=== PATIENT | female | born 1965 | race Caucasian/White ===

== ENCOUNTER 2020-08-16 17:54 | Inpatient (IN) ==
[2020-08-16 18:31] LABS: Eosinophils % 0.3 %; Lymphocytes % 41.5 %; Mean Corpuscular HGB Conc 33.1 g/dL (31.6-35.5); Mean Corpuscular Hemoglobin 31.1 pg (28.0-33.3); Mean Corpuscular Volume 94.1 fL (83.0-100.0); Mean Platelet Volume 10.1 fL (9.4-12.4); Monocytes # 0.2 K/mcL (0.0-1.3); Monocytes % 4.6 %; Nucleated Red Blood Cells 0.5 /100 WBC (0); Platelet Count 119 K/mcL (140-400); Red Blood Count 1.35 M/mcL (3.82-4.97); Segmented Neutrophils % 50.6 %
[2020-08-16 18:34] LABS: Lymphocytes # 1.7 K/mcL (0.6-4.6)
[2020-08-16 18:36] LABS: Hematocrit 12.7 % (35.3-44.9); Hemoglobin 4.2 g/dL (11.5-15.4)
[2020-08-16] MEDS ORDERED: Naloxone 0.4 MG/ML INJ IVP PRN ×2 (20:08→21:23)
[2020-08-16] MEDS ORDERED: 0.9 % Sodium Chloride 500 ML IVC ONE (20:12)
[2020-08-16] MEDS ORDERED: 0.9 % Sodium Chloride 250 ML ONE (23:15)
[2020-08-17 07:19] LABS: Basophils % 0.2 %; Eosinophils % 0.2 %; Hematocrit 20.6 % (35.3-44.9); Hemoglobin 6.9 g/dL (11.5-15.4); Immature Granulocytes % 2.6 % (0-4); Lymphocytes # 1.2 K/mcL (0.6-4.6); Lymphocytes % 23.3 %; Mean Corpuscular HGB Conc 33.5 g/dL (31.6-35.5); Mean Corpuscular Hemoglobin 30.5 pg (28.0-33.3); Mean Corpuscular Volume 91.2 fL (83.0-100.0); Mean Platelet Volume 10.1 fL (9.4-12.4); Monocytes # 0.2 K/mcL (0.0-1.3); Monocytes % 3.4 %; Neutrophils # 3.5 K/mcL (1.6-8.9); Platelet Count 100 K/mcL (140-400); Red Blood Count 2.26 M/mcL (3.82-4.97); Red Cell Distribution Width 15.7 % (11.5-14.5); Segmented Neutrophils % 70.3 %; White Blood Count 4.9 K/mcL (4.3-11.1)
[2020-08-17] MEDS ORDERED: 0.9 % Sodium Chloride 250 ML IVC SCH (08:45)
[2020-08-17] MEDS ORDERED: Ibuprofen 400 MG TABLET PO PRN (13:32)
[2020-08-17 14:18] LABS: Hematocrit 22.5 % (35.3-44.9); Hemoglobin 7.6 g/dL (11.5-15.4); Mean Corpuscular HGB Conc 33.8 g/dL (31.6-35.5); Mean Corpuscular Hemoglobin 30.6 pg (28.0-33.3); Mean Corpuscular Volume 90.7 fL (83.0-100.0); Mean Platelet Volume 9.4 fL (9.4-12.4); Red Blood Count 2.48 M/mcL (3.82-4.97); Red Cell Distribution Width 15.5 % (11.5-14.5); White Blood Count 3.7 K/mcL (4.3-11.1)
[2020-08-17 14:41] LABS: Platelet Count 96 K/mcL (140-400)
[2020-08-17 15:55] VITALS: BP 169/83
[2020-08-17] MEDS ORDERED: *HR* OxyCODONE Immed Rel 5 MG TABLET PO ONE (15:59)
== END 2020-08-17 17:30 | disposition home or self-care (01) | DRG 812 ==
LOC: EMEROOGRE 17:54 → INPGRE 20:43
PROVIDERS: ADMIT Family Medicine; ATTEND Family Medicine